=== PATIENT | male | born 1950 | race African-American/Black ===

== ENCOUNTER 2019-10-06 10:19 | Emergency (ER) | payer SELFPAY ==
[2019-10-06 11:55] LABS: Bacteria/HPF 4+ HPF (None Seen); Bilirubin Negative (Negative); Blood, Urine 2+ (Negative); Clarity Turbid (Clear); Glucose, Urine (Dipstick) Normal (Negative); Leukocyte 500 Leu/uL (Negative); Nitrite Negative (Negative); Protein, Urine (Dipstick) 20 mg/dL (Neg-Trace); RBC/HPF 21-50 HPF (0-3); Squamous Epithelial 0-3 HPF (0-3); Urobilinogen Normal mg/dL (Less than 2); WBC/HPF Greater than 50 HPF (0-3)
== END 2019-10-06 12:34 | disposition home or self-care (01) ==
LOC: ERS 10:19
DX: N39.0 Urinary tract infection, site not specified (principal); F17.210 Nicotine dependence, cigarettes, uncomplicated
CPT/HCPCS: 81003; 81015; 87077; 87086; 87186; 99283

== ENCOUNTER 2019-10-07 03:10 | Emergency (ER) | payer SELFPAY | END 2019-10-07 06:26 | disposition home or self-care (01) | LOC: ERS 03:10 | DX: T83.011A Breakdown (mechanical) of indwelling urethral catheter, initial encounter (principal); F17.210 Nicotine dependence, cigarettes, uncomplicated | CPT/HCPCS: 99283 ==

== ENCOUNTER 2019-10-16 10:06 | Outpatient (CLI) | payer MEDICARE ==
--- NOTE | 2019-10-16 10:29 | RAD ---
KUB: 10/16/2019 COMPARISON: None HISTORY: Bladder stone FINDINGS: The bowel gas pattern appears nonobstructed. Small calcifications are seen overlying the midline pelvis just superior to the pubic symphysis. Thes e are felt to most likely represent calculi within the prostate gland. Subcentimeter bladder stones cannot be excluded. Catheter tubing overlies the pelvis, which may signify a suprapubic catheter. IMPRESSION: Small calcifications are seen within the lower pelvis superior to the pubic symphysis humberto suring up to 9 mm. These calcifications are likely related to the prostate. Small bladder stone cannot be excluded. Cross-sectional imaging may thus be beneficial.
== END 2019-10-16 10:07 | disposition home or self-care (01) ==
LOC: EDBD 10:06 → BICRAD 10:06
PROVIDERS: ATTEND Urology
DX: Z09 Encounter for follow-up examination after completed treatment for conditions other than malignant neoplasm (principal); N28.89 Other specified disorders of kidney and ureter; Z87.442 Personal history of urinary calculi
CPT/HCPCS: 74018

== ENCOUNTER 2019-10-30 09:15 | Outpatient (CLI) | payer MEDICARE, MEDICAID ==
--- NOTE | 2019-10-30 11:11 | CT ---
Exam: Abdomen CT without contrast Pelvic CT without contrast HISTORY: Atonic bladder. Urinary retention. Bladder stone. COMPARISON: 01/03/2019 FINDINGS: Abdomen CT: Lung bases:Scarring and atelectasis in the lung bases. Heart size: Normal heart size. No significant pericardial fluid Aorta: Normal caliber. No periaortic fat stranding Solid organs: Limited evaluation by the absence of IV contrast. Grossly no solid organ abnormality Lymph nodes: Decreased visceral fat limits evaluation for lymphadenopathy. No definite gastrohepatic, retrocrural or periportal lymphadenopathy Gallbladder: No acute abnormality Mesentery: Decreased visceral fat limits evaluation for inflammatory change. No mesenteric mass, lymp hadenopathy, free air or free fluid. Kidneys: Multiple punctate echogenic foci predominantly involving the renal papillae compatible with parenchymal calcifications/nephrocalcinosis. There is mild prominence of bilateral intrarenal collecting systems. No evidence of associated obstructing UPJ stone. Limited evaluation of the ureter s due to decreased abdominal fat. No obvious calcifications along the expected course of either ureter. No obvious periureteral fat stranding or ureteral dilatation. Alimentary canal: Limited evaluation by the absence of oral contrast. No obvious bowel obstruction. N onspecific fecalization of the duodenum. Normal caliber appendix. Ileocecal junction is unremarkable. Scattered fecal material in a nondistended, nondilated colon. Diverticulosis, without e vidence of diverticulitis. CT PELVIS: No mass, lymphadenopathy or free air. Questionable trace free fluid in the pelvis. Prostate gland is diminutive. Urinary bladder: Suprapubic catheter is identified. Bladder is nearly decompressed. Limited evaluatio n of the urinary bladder mucosa. In the midline dependent portion of the urinary bladder, there is a vertically oriented calcification measuring approximately 1 cm craniocaudal dimension. Additional p unctate calcifications are presumed to be within the prostate gland. Osseous structures: No lytic or blastic lesions IMPRESSION: 1. Punctate calcifications in the right renal cortex, compatible with nephrocalcinosis. 2. Bilaterally no obstructing calculi. Mild fullness of the left and right intrarenal collecting syst em is nonspecific. 3. Suprapubic catheter. Previously noted calcification in the urinary bladder is redemonstrated. Calc ification has a more vertical appearance, as described above. Transcribed Date/Time: 10/30/2019 11:27 AM
== END 2019-10-30 09:16 | disposition home or self-care (01) ==
LOC: BICCT 09:15 → MERGE 10:00
PROVIDERS: ATTEND Urology
DX: N21.0 Calculus in bladder (principal); N20.0 Calculus of kidney; N31.2 Flaccid neuropathic bladder, not elsewhere classified
CPT/HCPCS: 74176

== ENCOUNTER 2019-12-21 06:35 | Outpatient (CLI) | payer MEDICARE, MEDICAID, OTHER ==
[2019-12-21 14:09] LABS: Hemoglobin 13.3 g/dL (14.0-18.0); Mean Corpuscular HGB CONC 32.3 g/dL (32.0-36.0); Mean Corpuscular Hemoglobin 30.4 pg (27.0-31.0); Mean Corpuscular Volume 94.2 fL (78.0-98.0); Platelet Count 217 thou/uL (130-400); RBC Distribution Width 11.7 % (11.5-14.5); Red Blood Cell (RBC) Count 4.38 mill/uL (4.70-6.10)
[2019-12-21 14:15] LABS: INR-International Normal Ratio 1.1; PTT 29.6 SEC (22.9-36.1)
[2019-12-21 14:30] LABS: Anion Gap 14 mmol/L (10-20); BUN (Urea Nitrogen) 9 mg/dL (8.4-25.7); Calc. Creatinine Clearance 0 mL/min (70-130); Calcium 9.7 mg/dL (7.8-10.44); Carbon Dioxide 25 mmol/L (23-31); Chloride 102 mmol/L (98-107); Estimated GFR-MDRD Greater than 90; Glucose 86 mg/dL (80-115); Potassium 4.3 mmol/L (3.5-5.1); Sodium 137 mmol/L (136-145)
[2019-12-21 17:23] LABS: SARS-CoV-2 MS2 Positive; SARS-CoV-2 N Gene Negative; SARS-CoV-2 S Gene Negative; SARS-CoV-2 orf1ab Negative
--- NOTE | 2019-12-23 12:19 | EKG ---
Test Reason : Blood Pressure : / mmHG Vent. Rate : 080 BPM Atrial Rate : 080 BPM P-R Int : 166 ms QRS Dur : 112 ms QT Int : 430 ms P-R-T Axes : 084 -81 074 degrees QTc Int : 495 ms Normal sinus rhythm Incomplete right bundle branch block Left anterior fascicular block Prolonged QT Abnormal ECG No previous ECGs available Confirmed by BELLA SUN, SLaure ([id number]) on 12/23/2019 12:18:46 PM Referred By: GLORIA Confirmed By:DR. Letitia BLANCO MD
== END 2019-12-21 06:36 | disposition home or self-care (01) ==
LOC: LABBT 06:35
PROVIDERS: ATTEND Urology
DX: Z01.818 Encounter for other preprocedural examination (principal); Z11.59 Encounter for screening for other viral diseases; N21.0 Calculus in bladder; N35.919 Unspecified urethral stricture, male, unspecified site
CPT/HCPCS: 80048; 85027; 85610; 85730; 93005; U0003; 87635; 93010

== ENCOUNTER 2019-12-26 06:40 | Day surgery (SDC) | payer MEDICARE, MEDICAID ==
[2019-12-21 12:58] VITALS: BMI 17.1
[2019-12-26] MEDS ORDERED: Levofloxacin 500 mg/D5W 100 ml Premix Bag ONE (08:23)
[2019-12-26] MEDS ORDERED: Vancomycin 1 GM/200 ML BAG ONE (08:23)
[2019-12-26] MEDS ORDERED: Famotidine/PF 20 mg/2ml Vial ONE (09:20)
[2019-12-26] MEDS ORDERED: Fentanyl 100 MCG/2 ML VIAL ONE (09:20)
[2019-12-26] MEDS ORDERED: SUGAMMADEX SODIUM 200 MG/2 ML VIAL ONE (09:33)
--- NOTE | 2019-12-26 10:36 | RAD ---
EXAM: XR IVP Retrograde PROVIDED CLINICAL HISTORY: Ureteral stent placement. COMPARISON: 05/02/2019 FINDINGS/IMPRESSION: 3 intraoperative fluoroscopic images of the abdomen are submitted. No suspicious calcifications are s een overlying the expected location of either renal collecting system or along the course of either ureter on fluoroscopic images. Images demonstrate a catheter and guidewire in place overlying the pel vis. There is a radiopaque catheter overlying midline of the pelvis likely related to suprapubic catheter. No additional imaging was provided. Correlation with intraoperative findings is recommended .
[2019-12-26] MEDS ORDERED: Promethazine HCl 25 MG/ML VIAL SLOW IVP PRN (10:40)
[2019-12-26] MEDS ORDERED: Ondansetron HCl/PF 4 MG/2 ML Vial IVP PRN (10:40)
[2019-12-26] MEDS ORDERED: Promethazine HCl 25 MG/ML VIAL IM PRN (10:40)
[2019-12-26] MEDS ORDERED: Oxybutynin 5 MG TAB ONE (10:57)
[2019-12-26] MEDS ORDERED: Phenazopyridine HCl 97.5 MG TABLET ONE (10:57)
--- NOTE | 2019-12-26 11:10 | OP ---
DATE OF PROCEDURE: 12/26/2019 PRIMARY CARE PHYSICIAN: Fco Leal MD PREOPERATIVE DIAGNOSES: Mr. Park is a 69-year-old male with, 1. 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 3. Bladder calculi [address] POSTOPERATIVE DIAGNOSES: Mr. Park is a 69-year-old male with, 1. 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 3. Bladder calculi [address] PROCEDURES PERFORMED: Cystoscopy, urethral dilatation, 20-St Lucian 10 mL urethral Velasquez catheter placement plugged, 26-St Lucian 30 mL suprapubic tube exchange, laser lithotripsy of bladder calculi, evacuation of bladder stones. ANESTHESIA: LMA. COMPLICATIONS: None apparent. DISPOSITION: To recovery room in stable condition. SPECIMEN: Stone for chemical analysis. INDICATIONS FOR PROCEDURE AND HISTORY: Mr. Park is a 69-year-old male with insensate myogenic bladder, initially presented with 2500 mL of PVR. He has been managed with chronic SP tube, as he has myogenic bladder. He presents today for evacuation of bladder stones, laser lithotripsy due to accelerated incrustation of SP tube. Risks and complications and indications for the procedure was reviewed with him in detail and he desired to proceed. DESCRIPTION OF PROCEDURE: After an informed consent was signed, the patient was taken to the operating room, placed in a dorsal lithotomy position with the genital area prepped and draped in the usual surgical sterile fashion. At this time, we performed a cystoscopy through the urethra. Using a 22-St Lucian cystoscope, I was able to make my way into the level of the bulbar/membranous urethra region. He has a pendulous urethra. With a 5-St Lucian cath placed near blind ending of the urethra at this junction, however, I can see a thin mucosa membrane. Therefore , we gently probed and was able to easily penetrate this membrane and proximal to that was a true urethra. A 0.035 Sensor wire was gently negotiated to the level of the bladder, which we saw on fluoroscopy. Subsequently, I was able to pass a 5- [facility] Lucian open-ended catheter to the level of the bladder. As his membrane of the defunctionalized urethra junction was very soft and flimsy, I was easily able to pass my 22-St Lucian cystoscope. Prostatic urethra was staged demonstrating a previous TUR defect. Bladder was entered, which demonstrated the dominant stone about 1 to 1.5 cm sediment. There was some evidence of stones dislodged from previous incrustation of the suprapubic tube balloon. The total conglomerate of bladder stone measures about 1.5 cm. Using a 550 micron laser fiber, we laser lithotripsied the stone into multiple tiny fragments and subsequently Ellleatha evacuated. Prior to Ellik evacuating, I was able to pass a 25-St Lucian sheath without significant issues. A new 26-St Lucian 30 mL suprapubic tube was placed without difficulty and attached to gravity leg bag. I did pass a 20-St Lucian 10 mL urethral Velasquez catheter, which did pass without guidewire assist to the level of the bladder, 10 mL insufflated. His urethral Velasquez catheter will be plugged. He is discharged for ciprofloxacin for course of 7 days and will see me next Tuesday for his urethral Velasquez catheter removal. We will continue his SP tube exchange every 4 weeks in my office. Job ID: [id number] [facility]
[2019-12-26] MEDS ORDERED: Rocuronium Bromide 10 MG/ML (10ML VIAL) ONE (15:45)
[2019-12-26] MEDS ORDERED: Ondansetron PF 4 MG/2 ML Vial ONE (15:45)
[2019-12-26] MEDS ORDERED: PHENYLEPHRINE-NS 100 MCG/ML 10 ML SYRINGE ONE (15:45)
[2019-12-26] MEDS ORDERED: Metoclopramide HCl 10 MG/2 ML VIAL ONE (15:45)
[2019-12-26] MEDS ORDERED: EPHEDRINE 25 MG/5 ML SYRINGE ONE (15:45)
[2019-12-26] MEDS ORDERED: Lidocaine 1% PF 5 ML VIAL ONE (15:45)
[2019-12-26] MEDS ORDERED: PROPOFOL 200 MG/20 ML VIAL ONE (15:45)
== END 2019-12-26 13:30 | disposition home or self-care (01) ==
LOC: SDC 06:40
PROVIDERS: ATTEND Urology
PROC: 0TCB8ZZ Extirpation of Matter from Bladder, Via Natural or Artificial Opening Endoscopic (ICD-10-PCS; principal; 2019-12-26)
DX: N21.0 Calculus in bladder (principal); N31.2 Flaccid neuropathic bladder, not elsewhere classified; N35.919 Unspecified urethral stricture, male, unspecified site; N40.1 Benign prostatic hyperplasia with lower urinary tract symptoms; R33.8 Other retention of urine
CPT/HCPCS: 74420; 82365; 88300; C1758; C1769; J1956; J2001; J2405; J2704; J2765; J3010; J3370; S0028

== ENCOUNTER 2020-08-25 10:07 | Outpatient (CLI) | payer MEDICARE, MEDICAID ==
--- NOTE | 2020-08-25 10:43 | RAD ---
EXAM: XR Abdomen 1 View/KUB PROVIDED CLINICAL HISTORY: Calculus of kidney. COMPARISON: 10/16/[address] abdomen on 10/30/2019 FINDINGS: There is suggestion of slight blunting left lateral costophrenic angle as well as linear densities at the left lung base. Findings may be related to pleural and parenchymal scarring. However, tiny left pleural effusion is a possibility. Minimal linear densities are seen at the right lung base prob ably related to mild chronic lung changes. The bowel gas pattern is nonspecific. No suspicious calcifications are seen overlying the renal shado ws or along the expected course of either ureter. Vascular calcifications are seen overlying the region of the iliac and femoral arteries. There are several tiny calcifications seen overlying the lo wer pelvis in the midline at the level of the pubic symphysis unchanged from prior study in likely related to prostate calcifications. Suprapubic catheter again overlies the pelvis. IMPRESSION: 1. Suprapubic catheter in place. 2. No suspicious calcifications are seen overlying the renal shadows or along the expected course of either ureter.
--- NOTE | 2020-08-25 10:45 | ULT ---
BILATERAL RENAL ULTRASOUND COMPLETE: HISTORY: Atonic bladder, bladder calculi, renal calculi. COMPARISON: 11/03/2018. FINDINGS: The right kidney measures 11.7 x 4.5 x 5.0 cm. The left kidney measures 10.7 x 5.2 x 5.7 cm. No renal hydronephrosis. No perinephric process. The bladder is empty. Superpubic catheter in plac e. IMPRESSION: No significant acute process. No hydronephrosis. Stable exam from prior study. POS: RRE
== END 2020-08-25 10:08 | disposition home or self-care (01) ==
LOC: BICULT 10:07
PROVIDERS: ATTEND Urology
DX: N20.0 Calculus of kidney (principal); N21.0 Calculus in bladder; N31.2 Flaccid neuropathic bladder, not elsewhere classified; Z96.0 Presence of urogenital implants
CPT/HCPCS: 74018; 76770

== ENCOUNTER 2020-11-06 08:28 | Outpatient (CLI) | payer MEDICARE, MEDICAID | END 2020-11-06 08:29 | disposition home or self-care (01) | LOC: BICCT 08:28 | PROVIDERS: ATTEND Urology | DX: N20.0 Calculus of kidney (principal); N31.2 Flaccid neuropathic bladder, not elsewhere classified; R33.9 Retention of urine, unspecified; Z87.448 Personal history of other diseases of urinary system | CPT/HCPCS: 74176 ==

== ENCOUNTER 2021-06-16 09:24 | Outpatient (CLI) | payer MEDICARE, MEDICAID | END 2021-06-16 09:25 | disposition home or self-care (01) | LOC: BICRAD 09:24 | PROVIDERS: ATTEND Urology | DX: N20.0 Calculus of kidney (principal); Z12.5 Encounter for screening for malignant neoplasm of prostate; R33.9 Retention of urine, unspecified | CPT/HCPCS: 36415; 74018; 80048; G0103 ==

== ENCOUNTER 2021-12-17 12:03 | Outpatient (CLI) | payer MEDICARE, MEDICAID | END 2021-12-17 12:04 | disposition home or self-care (01) | LOC: BICULT 12:03 | PROVIDERS: ATTEND Urology | DX: R33.9 Retention of urine, unspecified (principal); R31.29 Other microscopic hematuria; N31.2 Flaccid neuropathic bladder, not elsewhere classified; Z87.448 Personal history of other diseases of urinary system | CPT/HCPCS: 74018; 76770 ==

== ENCOUNTER 2022-01-06 09:58 | Outpatient (CLI) | payer MEDICARE, OTHER | END 2022-01-06 09:59 | disposition home or self-care (01) | LOC: BICCT 09:58 | PROVIDERS: ATTEND Urology | DX: N20.0 Calculus of kidney (principal); N40.1 Benign prostatic hyperplasia with lower urinary tract symptoms; R33.8 Other retention of urine; N21.0 Calculus in bladder | CPT/HCPCS: 74176 ==

== ENCOUNTER 2022-03-05 20:59 | Emergency (ER) | payer MEDICAID, MEDICARE, OTHER ==
[2022-03-05 21:54] LABS: Bacteria/HPF 4+ HPF (None Seen); Bilirubin Negative (Negative); Blood, Urine 3+ (Negative); Clarity Turbid (Clear); Glucose, Urine (Dipstick) Normal (Negative); Ketone, Urine Negative (Negative); Leukocyte 500 Leu/uL (Negative); Nitrite Negative (Negative); Protein, Urine (Dipstick) Negative (Neg-Trace); RBC/HPF 21-50 HPF (0-3); Specific Gravity, Urine 1.009 (1.002-1.036); Squamous Epithelial 0-3 HPF (0-3); Urobilinogen Normal mg/dL (Less than 2); WBC/HPF Greater than 50 HPF (0-3); pH, Urine 7.5 (5.0-9.0)
== END 2022-03-05 22:25 | disposition home or self-care (01) ==
LOC: ERS 20:59
DX: T83.010A Breakdown (mechanical) of cystostomy catheter, initial encounter (principal); N39.0 Urinary tract infection, site not specified; F17.210 Nicotine dependence, cigarettes, uncomplicated
CPT/HCPCS: 81003; 81015; 87086; 99283

== ENCOUNTER 2022-03-12 10:25 | Outpatient (CLI) | payer MEDICARE, MEDICAID ==
[2022-03-12 11:28] LABS: Hemoglobin 11.8 g/dL (13.5-17.5); Mean Corpuscular HGB CONC 32.5 g/dL (32.0-36.0); Mean Corpuscular Hemoglobin 29.4 pg (27.0-33.0); Mean Corpuscular Volume 90.5 fl (81.2-95.1); Mean Platelet Volume 8.6 fl (7.4-10.4); Platelet Count 245 10x3/uL (150-450); RBC Distribution Width 14.3 % (11.5-14.5); Red Blood Cell (RBC) Count 4.01 10x6/uL (4.32-5.72); White Blood Cell (WBC) Count 4.6 10x3/uL (3.5-10.5)
[2022-03-12 11:37] LABS: Anion Gap 14 mmol/L (10-20); BUN (Urea Nitrogen) 8 mg/dL (8.4-25.7); Calc. Creatinine Clearance 0 mL/min (70-130); Calcium 9.3 mg/dL (7.8-10.44); Carbon Dioxide 25 mmol/L (23-31); Chloride 104 mmol/L (98-107); Estimated GFR 94; Glucose 93 mg/dL (83-110); Potassium 4.2 mmol/L (3.5-5.1); Sodium 139 mmol/L (136-145)
[2022-03-12 11:42] LABS: INR-International Normal Ratio 1.1; PTT 25.7 sec (22.0-33.0); Prothrombin Time 11.7 sec (9.5-12.1)
== END 2022-03-12 10:26 | disposition home or self-care (01) ==
LOC: LABBT 10:25
PROVIDERS: ATTEND Urology
DX: Z01.818 Encounter for other preprocedural examination (principal); Z12.5 Encounter for screening for malignant neoplasm of prostate; N40.1 Benign prostatic hyperplasia with lower urinary tract symptoms; R33.8 Other retention of urine; N31.2 Flaccid neuropathic bladder, not elsewhere classified; F10.10 Alcohol abuse, uncomplicated; N35.919 Unspecified urethral stricture, male, unspecified site; N20.0 Calculus of kidney; Z87.448 Personal history of other diseases of urinary system; Z20.822 Contact with and (suspected) exposure to COVID-19
CPT/HCPCS: 80048; 85027; 85610; 85730; 87811; 93005; 93010

== ENCOUNTER 2022-03-17 07:51 | Day surgery (SDC) | payer MEDICARE, MEDICAID ==
[2022-03-15 12:36] VITALS: BMI 18.1
[2022-03-17] MEDS ORDERED: Vancomycin 1 GM/200 ML BAG ONE (08:21)
[2022-03-17] MEDS ORDERED: Iopamidol 45 ML ONE (10:40)
[2022-03-17] MEDS ORDERED: fentaNYL Citrate/PF 100 MCG/2 ML SYRINGE ONE (10:46)
[2022-03-17] MEDS ORDERED: SUGAMMADEX SODIUM 200 MG/2 ML VIAL ONE (10:47)
[2022-03-17] MEDS ORDERED: Famotidine/PF 20 mg/2ml Vial ONE (10:47)
[2022-03-17] MEDS ORDERED: Levofloxacin 500 mg/D5W 100 ml Premix Bag ONE (10:51)
[2022-03-17] MEDS ORDERED: Rocuronium Bromide 10 MG/ML (10ML VIAL) ONE (10:56)
[2022-03-17] MEDS ORDERED: Metoclopramide HCl 10 MG/2 ML VIAL ONE (10:56)
[2022-03-17] MEDS ORDERED: Ondansetron PF 4 MG/2 ML Vial ONE (10:56)
[2022-03-17] MEDS ORDERED: PROPOFOL 200 MG/20 ML VIAL ONE (10:56)
[2022-03-17] MEDS ORDERED: Lidocaine 1% PF 5 ML VIAL ONE (10:56)
[2022-03-17] MEDS ORDERED: Phenylephrine 10 MG/ML VIAL ONE (10:56)
[2022-03-17] MEDS ORDERED: ePHEDrine 50 MG/ML VIAL ONE (10:56)
[2022-03-17] MEDS ORDERED: Oxybutynin 5 MG TAB ONE (12:32)
[2022-03-17] MEDS ORDERED: Phenazopyridine HCl 100 MG TAB ONE (12:32)
== END 2022-03-17 14:15 | disposition home or self-care (01) ==
LOC: SDC 07:51
PROVIDERS: ATTEND Urology
PROC: 0TCB8ZZ Extirpation of Matter from Bladder, Via Natural or Artificial Opening Endoscopic (ICD-10-PCS; principal; 2022-03-17)
DX: N21.0 Calculus in bladder (principal); N35.919 Unspecified urethral stricture, male, unspecified site; N20.0 Calculus of kidney; N31.2 Flaccid neuropathic bladder, not elsewhere classified; F10.11 Alcohol abuse, in remission; Z87.891 Personal history of nicotine dependence
CPT/HCPCS: 74018; 74420; 82365; 88300; J1956; J2370; J2405; J2704; J2765; J3370; J3490; Q9967; S0028

== ENCOUNTER 2023-03-23 09:56 | Outpatient (CLI) | payer MEDICARE, MEDICAID | END 2023-03-23 09:57 | disposition home or self-care (01) | LOC: BICCT 09:56 | PROVIDERS: ATTEND Urology | DX: N20.0 Calculus of kidney (principal); R33.9 Retention of urine, unspecified; Z87.448 Personal history of other diseases of urinary system | CPT/HCPCS: 74176 ==

== ENCOUNTER 2023-04-06 09:47 | Outpatient (CLI) | payer MEDICARE, MEDICAID ==
[2023-04-06 11:05] LABS: Hematocrit 42.7 % (38.8-50.0); Hemoglobin 13.6 g/dL (13.5-17.5); Mean Corpuscular HGB CONC 31.9 g/dL (32.0-36.0); Mean Corpuscular Hemoglobin 29.3 pg (27.0-33.0); Mean Platelet Volume 8.7 fl (7.4-10.4); Platelet Count 244 10x3/uL (150-450); RBC Distribution Width 13.2 % (11.5-14.5); Red Blood Cell (RBC) Count 4.64 10x6/uL (4.32-5.72); White Blood Cell (WBC) Count 4.2 10x3/uL (3.5-10.5)
[2023-04-06 11:15] LABS: INR-International Normal Ratio 1.1; PTT 27.2 sec (22.0-33.0); Prothrombin Time 11.7 sec (9.5-12.1)
[2023-04-06 11:16] LABS: Anion Gap 14 mmol/L (10-20); BUN (Urea Nitrogen) 13 mg/dL (8.4-25.7); Calc. Creatinine Clearance 0 mL/min (70-130); Calcium 9.8 mg/dL (7.8-10.44); Carbon Dioxide 26 mmol/L (23-31); Chloride 103 mmol/L (98-107); Estimated GFR 79; Glucose 97 mg/dL (83-110); Potassium 4.3 mmol/L (3.5-5.1); Sodium 139 mmol/L (136-145)
== END 2023-04-06 09:48 | disposition home or self-care (01) ==
LOC: LABBT 09:47
PROVIDERS: ATTEND Urology
DX: Z01.818 Encounter for other preprocedural examination (principal); Z43.5 Encounter for attention to cystostomy; Z12.5 Encounter for screening for malignant neoplasm of prostate; N20.0 Calculus of kidney; N40.1 Benign prostatic hyperplasia with lower urinary tract symptoms; R33.8 Other retention of urine; N35.919 Unspecified urethral stricture, male, unspecified site; N21.0 Calculus in bladder
CPT/HCPCS: 80048; 85027; 85610; 85730; 93005; 93010

== ENCOUNTER 2023-04-13 06:22 | Day surgery (SDC) | payer MEDICARE, MEDICAID ==
[2023-04-06 10:34] VITALS: BMI 15.3
[2023-04-13] MEDS ORDERED: Vancomycin 1 GM/200 ML (FROZEN) BAG ONE (07:57)
[2023-04-13] MEDS ORDERED: cefTRIAXone (ROCEPHIN) 2 GM VIAL ONE (07:58)
[2023-04-13] MEDS ORDERED: Sodium Chloride 0.9% 100 ML ONE (07:58)
[2023-04-13] MEDS ORDERED: Iopamidol 0 ML ONE (09:02)
[2023-04-13] MEDS ORDERED: fentaNYL 50 mcg/mL 1 mL Vial ONE (09:23)
[2023-04-13] MEDS ORDERED: PROPOFOL 200 MG/20 ML VIAL ONE (09:38)
[2023-04-13] MEDS ORDERED: Lidocaine 1% PF 5 ML VIAL ONE (09:38)
[2023-04-13] MEDS ORDERED: Succinylcholine 200 MG/10 ml SYRINGE FS ONE (09:38)
[2023-04-13] MEDS ORDERED: Rocuronium Bromide 10 MG/ML (10ML VIAL) ONE (09:38)
== END 2023-04-13 13:33 | disposition home or self-care (01) ==
LOC: SDC 06:22
PROVIDERS: ATTEND Urology
PROC: 0TFB8ZZ Fragmentation in Bladder, Via Natural or Artificial Opening Endoscopic (ICD-10-PCS; principal; 2023-04-13)
PROC: 0TPB80Z Removal of Drainage Device from Bladder, Via Natural or Artificial Opening Endoscopic (ICD-10-PCS; 2023-04-13)
PROC: 0T9B00Z Drainage of Bladder with Drainage Device, Open Approach (ICD-10-PCS; 2023-04-13)
DX: N21.0 Calculus in bladder (principal); N31.2 Flaccid neuropathic bladder, not elsewhere classified; R33.9 Retention of urine, unspecified; N35.919 Unspecified urethral stricture, male, unspecified site; Z87.891 Personal history of nicotine dependence; N40.0 Benign prostatic hyperplasia without lower urinary tract symptoms; N20.0 Calculus of kidney
CPT/HCPCS: 51705; 52318; 82365; J3010; J3370; 88300; J0696; J2704; J3490; Q9967

== ENCOUNTER 2024-05-27 00:44 | Emergency (ER) | payer MEDICARE, OTHER ==
[2024-05-27 02:41] LABS: Bacteria/HPF 3+ HPF (None Seen); Bilirubin Negative (Negative); Blood, Urine Negative (Negative); CAUTI Indications for Culture Dysuria,urgency,freq; Clarity Turbid (Clear); Glucose, Urine (Dipstick) Normal (Negative); Ketone, Urine Negative (Negative); Leukocyte 500 Leu/uL (Negative); Nitrite Negative (Negative); Protein, Urine (Dipstick) 20 mg/dL (Neg-Trace); RBC/HPF 0-3 HPF (0-3); Specific Gravity, Urine 1.005 (1.002-1.036); Squamous Epithelial 0-3 HPF (0-3); Triple Phosphate Crystal Rare HPF (None Seen); Urobilinogen Normal mg/dL (Less than 2); pH, Urine 8.5 (5.0-9.0)
[2024-05-27 02:46] LABS: Urine Culture Reflex Yes Yes
[2024-05-27] MEDS ORDERED: Cefdinir 300 MG CAP PO SCH (03:30)
[2024-05-27] MEDS ORDERED: Acetaminophen 500 MG TAB ONE (03:56)
== END 2024-05-27 09:56 | disposition home or self-care (01) ==
LOC: ERS 00:44
DX: N39.0 Urinary tract infection, site not specified (principal); F17.210 Nicotine dependence, cigarettes, uncomplicated
CPT/HCPCS: 81001; 87077; 87086; 87186; 99283

== ENCOUNTER 2024-07-08 14:57 | Emergency (ER) | payer MEDICARE, MEDICAID ==
[2024-07-08 18:11] LABS: Bacteria/HPF 1+ HPF (None Seen); Bilirubin Negative (Negative); Blood, Urine Trace (Negative); CAUTI Indications for Culture Acute Hematuria; Clarity Turbid (Clear); Glucose, Urine (Dipstick) Normal (Negative); Ketone, Urine Negative (Negative); Leukocyte 500 Leu/uL (Negative); Nitrite Negative (Negative); Protein, Urine (Dipstick) 10 mg/dL (Neg-Trace); RBC/HPF 0-3 HPF (0-3); Specific Gravity, Urine 1.006 (1.002-1.036); Squamous Epithelial 0-3 HPF (0-3); Urobilinogen Normal mg/dL (Less than 2); WBC/HPF Greater than 50 HPF (0-3); pH, Urine 7.5 (5.0-9.0)
[2024-07-08 18:12] LABS: Urine Culture Reflex Yes Yes
== END 2024-07-08 18:50 | disposition home or self-care (01) ==
LOC: ERS 14:57
DX: T83.091A Other mechanical complication of indwelling urethral catheter, initial encounter (principal); T83.518A Infection and inflammatory reaction due to other urinary catheter, initial encounter; N39.0 Urinary tract infection, site not specified; Z55.6 Problems related to health literacy; Z87.891 Personal history of nicotine dependence
CPT/HCPCS: 51702; 81001; 87077; 87086; 87186

== ENCOUNTER 2025-04-11 13:11 | Outpatient (CLI) | payer MEDICARE, MEDICAID | END 2025-04-11 13:12 | LOC: ULT 13:11 | PROVIDERS: ATTEND Urology | DX: N20.0 Calculus of kidney (principal); N21.0 Calculus in bladder | CPT/HCPCS: 76770 ==

== ENCOUNTER 2025-08-03 13:00 | Emergency (ER) | payer MEDICARE, MEDICAID ==
[2025-08-03 18:14] LABS: Bacteria/HPF None Seen HPF (None Seen); CAUTI Indications for Culture Urological Procedure; Glucose, Urine (Dipstick) Normal (Negative); Leukocyte 500 Leu/uL (Negative); Protein, Urine (Dipstick) 20 mg/dL (Neg-Trace); RBC/HPF None Seen HPF (0-3); Specific Gravity, Urine 1.012 (1.002-1.036); WBC/HPF 0-3 HPF (0-3)
[2025-08-03 18:21] LABS: Urine Culture Reflex Yes Yes
[2025-08-03] MEDS ORDERED: Ciprofloxacin 500 MG TAB ONE (19:16)
== END 2025-08-03 20:36 | disposition home or self-care (01) ==
LOC: ERS 13:00
DX: T83.098A Other mechanical complication of other urinary catheter, initial encounter (principal); F17.210 Nicotine dependence, cigarettes, uncomplicated
CPT/HCPCS: 81001; 87077; 87086; 87186; 99283